=== PATIENT | male | born 1990 | race African-American/Black ===

== ENCOUNTER 2017-05-06 16:01 | Emergency (ER) | payer OTHER ==
[~2017-05-06] VITALS: Ht 177.8 cm; Wt 58.1 kg
[~2017-05-06 16:01] MED LIST: FLEXERIL10 MG PO; VICODIN5-300 PO
--- NOTE | 2017-05-06 16:44 | ED CARDIAC/CP/PALPITATIONS ---
History of Present Illness General Chief Complaint: Chest Pain Stated Complaint: CHEST PAIN Source: patient Exam Limitations: no limitations Vital Signs & Intake/Output Vital Signs & Intake/Output Vital Signs Date Time Temp Pulse Resp B/P B/P Pulse O2 O2 Flow FiO2 Mean Ox Delivery Rate 05/06 1905 99.0 78 24 138/65 98 Room Air 05/06 1800 Room Air 05/06 1612 97.8 80 18 124/73 100 Room Air ED Intake and Output 05/07 0000 05/06 1200 Intake Total Output Total Balance Patient 128 lb Weight Weight Standing Scale Measurement Method Allergies Coded Allergies: No Known Allergies (05/06/17) Reconcile Medications No Known Home Medications Triage Note: PT STATES HE HAS BEEN HAVING CHEST PAIN ON AND OFF SINCE SUNDAY. PT STATES SINCE THEY HAVE BEEN GETTING WORSE. PT STATES HE ALSO HAS SOB WITH HIS CHEST PAIN. PT HAS INCREASED PAIN WITH PALPATION AND STATES THAT IS THE SIDE HE LAYS ON. PT DENIES DRUG USE. Triage Nurses Notes Reviewed? yes Onset: Gradual Duration: day(s): Timing: recent history Quality/Severity: burning, pressure Location: substernal Radiation: no radiation HPI: 26-year-old male presents emergency department complaining of intermittent chest pain beginning 3 days ago. Patient states that chest pain is substernal, burning/pressure, intermittent. Patient states that when he wakes up in the morning sometimes he drank his chest pain. Patient states he has no trouble breathing however feels he has difficulty expelling oxygen at times. Patient also complaining of paresthesias of bilateral hands intermittently. Patient admits to cannabis use. He denies tobacco use, cocaine use, abdominal pain, nausea, vomiting, syncope, head trauma. (Robyn Flores) Past History Travel History Traveled to [place] past 21 day No Medical History Any Pertinent Medical History? none Neurological: NONE EENT: NONE Cardiovascular: NONE Respiratory: NONE Gastrointestinal: NONE Hepatic: NONE Renal: NONE Musculoskeletal: NONE Psychiatric: NONE Endocrine: NONE Tetanus Vaccine: 11/09/14 Surgical History Surgical History: N Psychosocial History What is your primary language Uruguayan Tobacco Use: Never used ETOH Use: occasional use Illicit Drug Use: marijuana Family History Hx Contributory? No (Robyn Flores) Review of Systems Review of Systems Constitutional: Reports: no symptoms. EENTM: Reports: no symptoms. Respiratory: Reports: see HPI. Cardiovascular: Reports: see HPI. GI: Reports: no symptoms. Genitourinary: Reports: no symptoms. Musculoskeletal: Reports: no symptoms. Skin: Reports: no symptoms. Neurological/Psychological: Reports: see HPI. Hematologic/Endocrine: Reports: no symptoms. Immunologic/Allergic: Reports: no symptoms. All Other Systems: Reviewed and Negative (Robyn Flores) Physical Exam Physical Exam General Appearance: well developed/nourished, no apparent distress, alert, awake Head: atraumatic, normal appearance Eyes: Bilateral: normal appearance. Ears, Nose, Throat: hearing grossly normal Neck: normal inspection, supple, full range of motion Respiratory: normal breath sounds, no respiratory distress, lungs clear, anterior chest wall tenderness Cardiovascular: regular rate/rhythm Peripheral Pulses: 2+ radial (R), 2+ radial (L) Gastrointestinal: normal bowel sounds, soft, non-tender, no organomegaly Back: normal inspection, normal range of motion Extremities: normal inspection, normal range of motion, no edema Neurologic/Psych: awake, alert, oriented x 3 Skin: intact, normal color, warm/dry Core Measures ACS in differential dx? Yes CVA/TIA Diagnosis No Sepsis Present: No Sepsis Focused Exam Completed? No All Positive = PERC Ruled Out: Positive: age < 50 years, heart rate < 100 bpm, O2 sat > 94%, no hemoptysis, no hormone use, no prior DVT or PE, no unilateral leg swellin, no surgery/trauma w/ in 4w. (Robyn Flores) Progress Differential Diagnosis: AMI, atrial fibrillation, costochondritis, hyperventilation, musculoskeletal pain, myocarditis, pericarditis, pneumonia, pneumothorax, PSVT, rib fracture Plan of Care: Orders Procedure Date/time Status TROPONIN LEVEL 05/06 1654 Complete COMPREHENSIVE METABOLIC PANEL 05/06 1654 Complete CBC WITHOUT DIFFERENTIAL 05/06 165 Complete EKG 05/06 1602 Active Laboratory Tests 05/06/17 1735: Anion Gap 16, Estimated GFR > 60, BUN/Creatinine Ratio 8.9, Glucose 77, Calcium 9.9, Total Bilirubin 0.9, AST 24, ALT 30, Alkaline Phosphatase 69, Troponin I < 0.01, Total Protein 7.8, Albumin 4.7, Globulin 3.1, Albumin/Globulin Ratio 1.5, CBC w Diff NO MAN DIFF REQ, RBC 5.18, MCV 88.5, MCH 29.5, MCHC 33.3, RDW 13.3, MPV 8.2, Gran % 79.0 H, Lymphocytes % 13.2 L, Monocytes % 5.0, Eosinophils % 2.4, Basophils % 0.4, Absolute Granulocytes 10.0 H, Absolute Lymphocytes 1.7, Absolute Monocytes 0.6, Absolute Eosinophils 0.3, Absolute Basophils 0 Patient has reproducible chest pain on physical exam. Chest x-ray is within normal limits. EKG without acute abnormality. Patient's troponin is negative. Remainder of blood work is within normal limits. While discussing results with the patient patient appears very anxious, hyperventilating. There is likely an anxiety component to some of patient's current symptoms. Patient medicated with IM Toradol and Ativan here in the emergency department. Prior medications patient complaining of bilateral arm numbness lasting seconds. Following medications patient seen laying in stretcher calmly, no acute distress. Patient reports that he does feel some improvement following medications. Is recommended the patient follow-up with injection molding machine setter for further workup. Patient given strict return precautions. Patient has low cardiac risk factors, he is perc negative, workup has been within normal limits today, low suspicion for acute coronary syndrome or pulmonary embolism. Patient in no acute distress at this time, vital signs are stable, he is nontoxic appearing. The patient agrees with the plan of care. The patient was discussed with Dr. Huang who agrees with this plan. Diagnostic Imaging: Viewed by Me: Radiology Read. Discussed w/RAD: Radiology Read. CXR Impression: PATIENT: APOORVA JOHNSON PRESENT AGE : 26 PATIENT ACCOUNT NO: [id number] : 92 LOCATION: [facility] ORDERING PHYSICIAN: Robyn BLOOD SERVICE DATE: 05/06/17 EXAM TYPE: RAD - XRY-CHEST XRAY, TWO VIEWS EXAMINATION: XR CHEST CLINICAL INFORMATION: Pneumonia chest pain COMPARISON: None TECHNIQUE: 2 views of the chest were obtained. FINDINGS: No significant abnormality is noted involving the heart, lungs, mediastinum, bony thorax or soft tissues. IMPRESSION: Unremarkable examination. DICTATED BY: Donavan Madsen MD DATE/TIME DICTATED:05/06/171738 CUSTOM DRESSMAKER:MADDIE DATE/TIME TRANSCRIBED:05/06/171738 CONFIDENTIAL, DO NOT COPY WITHOUT APPROPRIATE AUTHORIZATION. <Electronically signed in Other Vendor System> SIGNED BY: Donavan Madsen MD 05/06/17 0923 Initial ED EKG: sinus rhythm @80bpm, nonspecific ST changes (Robyn Flores) Departure Departure Disposition: HOME OR SELF CARE Condition: Stable Clinical Impression Primary Impression: Chest pain Secondary Impressions: Anxiety Referrals: Patient Has No Primary Care Dr (PCP/Family) Additional Instructions: As discussed, follow-up with injection molding machine setter referred to you today for further evaluation. You may take Tylenol or ibuprofen as prescribed as needed for pain. With any worsening symptoms or other concerns please return to the emergency department. Please note that there might be incidental findings in your evaluation that are unrelated to the current emergency department visit. Please notify your primary care doctor about this emergency department visit in order to obtain and review all of the testing performed so that these incidental findings can be monitored as needed. If you had an x-ray performed, please understand that some fractures may not be seen on the initial set of x-rays. If your symptoms persist you might need a repeat set of x-rays to check for such a fracture. If you had a laceration evaluated, please understand that foreign bodies such as glass or wood may not be visible to the naked eye or on plain x-rays. If the wound becomes red, swollen, increasingly more painful or if there is any drainage from the wound, please have it reevaluated by a physician for the possibility of a retained foreign body. If you're unable to follow up as outlined in the discharge instructions please return to the emergency department. Thank you for choosing the [facility] Emergency Department for your care. It was a pleasure to serve you today. Departure Forms: Customer Survey General Discharge Information Prescriptions: Current Visit Scripts No Known Home Medications (Robyn Flores) PA/CELL INSTALLER Co-Sign Statement Statement: ED Attending supervision documentation- x I saw and evaluated the patient. I have also reviewed all the pertinent lab results and diagnostic results. I agree with the findings and the plan of care as documented in the PA's/CELL INSTALLER's documentation. [] I have reviewed the ED Record and agree with the PA's/CELL INSTALLER's documentation. [] Additions or exceptions (if any) to the PAs/CELL INSTALLER's note and plan are summarized below: [] (Sal YANG,Efren) Critical Care Note Critical Care Note Critical Care Time: non-applicable (Jazmine BLOOD,Robyn Tolliver)
--- NOTE | 2017-05-06 17:43 | RADIOLOGY REPORT ---
EXAMINATION: XR CHEST CLINICAL INFORMATION: Pneumonia chest pain COMPARISON: None TECHNIQUE: 2 views of the chest were obtained. FINDINGS: No significant abnormality is noted involving the heart, lungs, mediastinum, bony thorax or soft tissues. IMPRESSION: Unremarkable examination.
[2017-05-06 17:49] LABS: ABSOLUTE BASOPHIL COUNT 0 /CUMM (0.0-0.2); ABSOLUTE EOSINOPHIL COUNT 0.3 /CUMM (0.0-0.7); ABSOLUTE LYMPH COUNT 1.7 /CUMM (1.2-3.4); ABSOLUTE MONOCYTE COUNT 0.6 /CUMM (0.10-0.60); BASOPHIL % 0.4 % (0.0-2.0); EOSINOPHIL % 2.4 % (0-5); HEMATOCRIT 45.8 % (42-52); MEAN CORPUSCULAR HGB 29.5 PG (27.0-31.0); MEAN CORPUSCULAR HGB CONC 33.3 G/DL (33.0-37.0); MEAN CORPUSCULAR VOLUME 88.5 FL (80.0-94.0); MEAN PLATELET VOLUME 8.2 FL (7.4-10.4); PLATELET COUNT 262 /CUMM (130-400); RBC DISTRIBUTION WIDTH 13.3 % (11.5-14.5); RED BLOOD CELL CT 5.18 /CUMM (4.70-6.10); WHITE BLOOD CELL COUNT 12.6 /CUMM (4.8-10.8)
[2017-05-06 19:05] VITALS: BP 138/65
[2017-05-11] MEDS ORDERED: INDOMETHACIN50 M1 PO (21:34)
[2017-05-11] MEDS ORDERED: IBUPROFEN600 M1 PO (22:32)
== END 2017-05-06 20:02 ==
LOC: ERH 16:01
PROVIDERS: Physician Assistant
DX: R07.9 Chest pain, unspecified (principal); F41.9 Anxiety disorder, unspecified
CPT/HCPCS: 71046; 93005; 93010; 96372; J1885